=== PATIENT | female | born 1950 | race Caucasian/White ===

== ENCOUNTER 2024-12-03 11:43 | Day surgery (SDC) | payer OTHER ==
[~2024-12-03] VITALS: Ht 160 cm; Wt 97.5 kg
[~2024-12-03 11:43] MED LIST: CETI5 PO; HYDACE5 PO; Lactated Ringer's 1,000 ML IV ONE; ONDA4 PO; PROBIOTIC1 EAC1 PO; propofoL 50 ML IV ONE
[2024-12-03] MEDS ORDERED: LETR2.5 (12:01)
[2024-12-03] MEDS ORDERED: Lactated Ringer's 1,000 ML IV ONE (12:40)
[2024-12-03 14:01] VITALS: BP 130/66
== END 2024-12-03 13:56 | disposition home or self-care (01) ==
LOC: ORSCSDS 11:43
PROVIDERS: Surgery
PROC: 0DBK8ZX Excision of Ascending Colon, Via Natural or Artificial Opening Endoscopic, Diagnostic (ICD-10-PCS; principal; 2024-12-03 13:00)
DX: Z12.11 Encounter for screening for malignant neoplasm of colon (principal); D12.2 Benign neoplasm of ascending colon; K57.30 Diverticulosis of large intestine without perforation or abscess without bleeding; Z85.3 Personal history of malignant neoplasm of breast; Z79.899 Other long term (current) drug therapy
CPT/HCPCS: 88305; J2704; J7120